=== PATIENT | female | born 1980 | race Caucasian/White ===

== ENCOUNTER 2020-11-04 13:51 | Emergency (ER) | payer OTHER ==
--- OUTSIDE RECORDS SUMMARY | 2020-11-04 13:54 | XMS REPORT | Continuity of Care Document ---
:1980 Author Organization [facility] t Address [address] [place] [address] Care Team Providers Name Role Phone Andres Jones MD Attending Clinician Doctor Unassigned, Name Attending Clinician Unavailable Manish Arango DO Attending Clinician Problems This patient has no known problems. Allergies, Adverse Reactions, Alerts This patient has no known allergies or adverse reactions. Medications This patient has no known medications. Procedures This patient has no known procedures. Encounters Start End Encounter Admission Attending Care Care Encounter Source Date/Time Date/Time Type Type Clinicians Facility Department ID 2020-10-09 2020-10-09 [facility] [id number] 00:00:00 00:00:00 [facility] [id number] [facility] [id number] Emily [phone] nal [facility] Office Building One 2020-09-06 2020-09-06 Telephone [facility] [id number] 00:00:00 00:00:00 [facility] [id number] [facility] [id number] Professio [phone] nal [facility] 2020-09-05 2020-09-05 Orders Doctor DELANEY [id number] 00:00:00 00:00:00 Only UnassignedHERMELINDO [id number] [place] [facility] [id number] 2020-09-03 2020-09-03 Telephone Robert [facility] [id number] 00:00:00 00:00:00 [facility] [id number] [place] [id number] Professio [phone] nal 044 [address] One 2020-08-26 2020-08-26 Patient Nba [facility] [id number] 00:00:00 00:00:00 Outreach [facility] [id number] [facility] [id number] PAVILLION [id number] 2020-08-14 2020-08-14 [facility] [id number] 10:02:53 10:17:53 Visit [facility] [id number] [place] [id number] Professio [phone] nal 044 [address] One Results This patient has no known results.
--- NOTE | 2020-11-04 17:57 | RAD REPORT ---
EXAM DESCRIPTION: RAD - Chest Single View - 11/04/2020 5:52 pm CLINICAL HISTORY: SOB, cough and congestion for a week COMPARISON: None TECHNIQUE: AP portable chest image was obtained 11/04/2020 5:52 pm . FINDINGS: Lungs are clear. Heart and vasculature are normal. No measurable pleural effusion and no p neumothorax. No acute bony abnormality seen. No acute aortic findings suspected. IMPRESSION: No acute cardiopulmonary process.
[2020-11-04] MEDS ORDERED: dexAMETHasone 10 MG/ML VIAL ONE (18:01)
--- NOTE | 2020-11-04 18:03 | ER ---
Nurse's Notes [facility] Name: Marivel Diaz Age: 40 yrs Sex: Female : 1980 Arrival Date: 11/04/2020 Time: 13:52 Bed 26 Private MD: Diagnosis: Exposure to unspecified allergen (Non Anaphylactic) ;Dyspnea, unspecified Presentation: 11/04 14:03 Chief complaint: Patient states: Cough, congestion for over 1 week. Saw her MD Wednesday, ll1 given flonase, benzonatate, zyrtec D. Nasal congestion is getting better, but cough is still severe. States she has bad coughing fits and feels like she might vomit sometimes. No fever. Coronavirus screen: Client denies travel out of the [place] in the last 14 days. congestion, cough unrelated to allergies, diarrhea, difficulty breathing, headache, nausea, runny nose, shortness of breath, Client presents with at least one sign or symptom that may indicate coronavirus-19. Standard/surgical mask placed on the client. Ebola Screen: Patient denies travel to an Ebola-affected area in the 21 days before illness onset. Onset: The symptoms/episode began/occurred 1 week(s) ago. Anaphylaxis evaluation, no signs or symptoms of anaphylaxis were noted. Initial Sepsis Screen: Does the patient meet any 2 criteria? No. Patient's initial sepsis screen is negative. Does the patient have a suspected source of infection? No. Patient's initial sepsis screen is negative. Risk Assessment: Do you want to hurt yourself or someone else? Patient reports no desire to harm self or others. Onset of symptoms was October 28, 2020. 14:03 Method Of Arrival: Ambulatory ll1 14:03 Acuity: HELEN 3 ll1 Historical: - Allergies: 14:10 PENICILLINS; ll1 14:10 Raspberry; ll1 14:10 bees/wasps; ll1 - PMHx: 14:10 High Cholesterol; ADD/ADHD; nerve pain arm; seasonal allergies; Thyroid problem; ll1 - PSHx: 14:10 Tonsillectomy; Adenoids; ll1 - Immunization history:: Flu vaccine is not up to date. - Social history:: Smoking status: Patient denies any tobacco usage or history of. Screenin:17 Abuse screen: Denies threats or abuse. Denies injuries from another. Nutritional zb screening: No deficits noted. Tuberculosis screening: No symptoms or risk factors identified. Fall Risk None identified. Assessment: 16:17 General: Appears in no apparent distress. uncomfortable, Behavior is calm, cooperative, zb Reports feeling ill for > 3 days. Pain: Denies pain. Neuro: Level of Consciousness is awake, alert, Oriented to person, place, time, situation. Cardiovascular: Capillary refill < 3 seconds Patient's skin is warm and dry. Respiratory: Reports cough that is hacking, persistent Airway is patent Respiratory effort is even, unlabored, Respiratory pattern is regular, symmetrical, Breath sounds are clear bilaterally. the patient has mild shortness of breath. GI: No deficits noted. Derm: Rash noted that is red, urticaria, on neck and chest. Musculoskeletal: Circulation, motion, and sensation intact. Range of motion: intact in all extremities. 17:00 Reassessment: Patient appears in no apparent distress at this time. Patient and/or zb family updated on plan of care and expected duration. Pain level reassessed. Patient is alert, oriented x 3, equal unlabored respirations, skin warm/dry/pink. patient ambulated to restroom. up at sid. 17:59 Reassessment: Patient appears in no apparent distress at this time. Patient and/or zb family updated on plan of care and expected duration. Pain level reassessed. Patient is alert, oriented x 3, equal unlabored respirations, skin warm/dry/pink. mild cough present. no acute events. Vital Signs: 14:03 BP 137 / 100; Pulse 100; Resp 18; Temp 97.8; Pulse Ox 99% ; Weight 81.65 kg; Height 5 ll1 ft. 2 in. (157.48 cm); Pain 4/10; 16:13 BP 131 / 80; Pulse 96; Resp 17; Pulse Ox 100% on R/A; zb 17:00 BP 112 / 84; Pulse 98; Resp 16; Pulse Ox 100% ; zb 17:59 BP 116 / 90; Pulse 93; Resp 16; Pulse Ox 100% on R/A; zb 14:03 Body Mass Index 32.92 (81.65 kg, 157.48 cm) ll1 ED Course: 13:52 Patient arrived in ED. ds1 14:08 Triage completed. ll1 14:10 Arm band placed on. ll1 16:09 Patient placed in an exam room, on a stretcher. ll1 16:12 Riley Padron PA is PHCP. [facility] 16:12 Claudy Clayton MD is Attending Physician. [facility] 16:13 Raiza Devine, RN is Primary Nurse. zb 16:17 Patient has correct armband on for positive identification. zb 17:52 Chest Single View XRAY In Process Unspecified. EDMS 18:12 No provider procedures requiring assistance completed. Patient did not have IV access zb during this emergency room visit. Administered Medications: 17:47 Drug: Decadron (dexamethasone) 10 mg Route: IM; Site: left deltoid; zb 18:05 Follow up: Response: No adverse reaction zb Outcome: 18:03 Discharge ordered by . jmm 18:12 Discharged to home ambulatory. zb 18:12 Condition: stable 18:12 Discharge instructions given to patient, Instructed on discharge instructions, follow up and referral plans. medication usage, Demonstrated understanding of instructions, follow-up care, medications, Prescriptions given X 2. 18:12 Patient left the ED. zb Signatures: Dispatcher [employer] EDMS Riley Padron PA PA Ирина Michaud ds1 Rojas Jorgensen RN RN 1 Raiza Devine, DONNA RN zb
--- NOTE | 2020-11-04 18:13 | EDPHYS ---
Physician Documentation [facility] Janay Name: Marivel Diaz Age: 40 yrs Sex: Female : 1980 Arrival Date: 11/04/2020 Time: 13:52 Bed 26 Private MD: ED Physician Claudy Clayton HPI: 11/04 17:59 This 40 yrs old Female presents to ER via Ambulatory with complaints of jmm Allergic Reaction. 17:59 Onset: The symptoms/episode began/occurred gradually, 1 week(s) ago. Associated signs jmm and symptoms: Pertinent positives: shortness of breath. Possible causes: pollen. SYmptoms began approx 1 week ago. PCP prescribed prednisone with no relief. Patient is concerned this may be due to mold exposure. . Historical: - Allergies: 14:10 PENICILLINS; ll1 14:10 Raspberry; ll1 14:10 bees/wasps; ll1 - PMHx: 14:10 High Cholesterol; ADD/ADHD; nerve pain arm; seasonal allergies; Thyroid problem; ll1 - PSHx: 14:10 Tonsillectomy; Adenoids; ll1 - Immunization history:: Flu vaccine is not up to date. - Social history:: Smoking status: Patient denies any tobacco usage or history of. ROS: 17:59 Constitutional: Negative for fever, chills, and weight loss. jmm 17:59 Cardiovascular: Negative for chest pain, palpitations, and edema. 17:59 ENT: Positive for sore throat. 17:59 Respiratory: Positive for shortness of breath. 17:59 All other systems are negative. Exam: 17:59 Constitutional: This is a well developed, well nourished patient who is awake, alert, jmm and in no acute distress. Head/Face: atraumatic. Eyes: EOMI, no conjunctival erythema appreciated ENT: Moist Mucus Membranes Neck: Trachea midline, Supple Chest/axilla: Normal chest wall appearance and motion. Cardiovascular: Regular rate and rhythm. No edema appreciated Respiratory: Normal respirations, no respiratory distress appreciated Abdomen/GI: Non distended, soft Back: Normal ROM Skin: General appearance color normal MS/ Extremity: Moves all extremities, no obvious deformities appreciated, no edema noted to the lower extremities Neuro: Awake and alert, normal gait Psych: Behavior is normal, Mood is normal, Patient is cooperative and pleasant Vital Signs: 14:03 BP 137 / 100; Pulse 100; Resp 18; Temp 97.8; Pulse Ox 99% ; Weight 81.65 kg; Height 5 ll1 ft. 2 in. (157.48 cm); Pain 4/10; 16:13 BP 131 / 80; Pulse 96; Resp 17; Pulse Ox 100% on R/A; zb 17:00 BP 112 / 84; Pulse 98; Resp 16; Pulse Ox 100% ; zb 17:59 BP 116 / 90; Pulse 93; Resp 16; Pulse Ox 100% on R/A; zb 14:03 Body Mass Index 32.92 (81.65 kg, 157.48 cm) ll1 MDM: 16:51 Patient medically screened. [facility] 18:01 Data reviewed: vital signs, nurses notes. Counseling: I had a detailed discussion with [facility] the patient and/or guardian regarding: the historical points, exam findings, and any diagnostic results supporting the discharge/admit diagnosis, lab results, radiology results, the need for outpatient follow up. ED course: Patient is alert and non toxic in appearance in the ED. No signs of resp distress. No pharyngeal edema appreciated. . 11/04 17:08 Order name: Chest Single View XRAY; Complete Time: 17:58 [facility] Administered Medications: 17:47 Drug: Decadron (dexamethasone) 10 mg Route: IM; Site: left deltoid; zb 18:05 Follow up: Response: No adverse reaction zb Disposition: 18:15 Co-signature as Attending Physician, Claudy Clayton MD. rn Disposition: 11/04/20 18:03 Discharged to Home. Impression: Exposure to unspecified allergen (Non Anaphylactic) , Dyspnea, unspecified. - Condition is Stable. - Discharge Instructions: Allergies, Adult, Shortness of Breath. - Prescriptions for Hydroxyzine HCl 25 mg Oral Tablet - take 1 tablet by ORAL route every 6 hours As needed; 30 tablet. Albuterol Sulfate 90 mcg/actuation - inhale 1-2 puff by INHALATION route every 4-6 hours; 1 Inhaler. - Medication Reconciliation Form, Thank You Letter, Antibiotic Education, Prescription Opioid Use form. - Follow up: Private Physician; When: 2 - 3 days; Reason: Recheck today's complaints, Continuance of care, Re-evaluation by your physician. Signatures: Dispatcher [employer] EDMS Riley Padron, PA PA jmm Clayton, Claudy, MD MD rn Jameel, Lynsay, RN RN ll1 Raiza Devine RN RN delma Corrections: (The following items were deleted from the chart) 18:12 18:03 11/04/2020 18:03 Discharged to Home. Impression: Exposure to unspecified allergen zb (Non Anaphylactic) ; Dyspnea, unspecified. Condition is Stable. Forms are Medication Reconciliation Form, Thank You Letter, Antibiotic Education, Prescription Opioid Use. Follow up: Private Physician; When: 2 - 3 days; Reason: Recheck today's complaints, Continuance of care, Re-evaluation by your physician. samantha
[2020-11-04 18:17] VITALS: TEMP 97.8
[2020-11-04 18:19] VITALS: O2SAT 100
[2020-11-04 18:22] VITALS: BP 116/90
== END 2020-11-04 18:12 | disposition home or self-care (01) ==
LOC: ER 13:51
DX: R06.00 Dyspnea, unspecified (principal); T78.40XA Allergy, unspecified, initial encounter; Z88.0 Allergy status to penicillin; Z91.018 Allergy to other foods; Z91.030 Bee allergy status; Z91.038 Other insect allergy status
CPT/HCPCS: 71045; 96372; 99283; J1100